=== PATIENT | male | born 1960 | race Caucasian/White ===

== ENCOUNTER → 2023-02-15 | Outpatient (CLI) | payer MEDICARE ==
--- NOTE | 2023-02-15 11:02 | Diagnostic Imaging Report ---
PROCEDURE: MRI lumbar spine. TECHNIQUE: Multiplanar, multisequence MRI of the lumbar spine was performed without contrast. INDICATION: Lumbar radiculopathy. COMPARISON: None. FINDINGS: There are 5 lumbar-type vertebral bodies for the purposes of this report. Normal alignment. Vertebral body heights preserved. Normal bone marrow signal. No abnormal signal in the conus which terminates at L1. Normal morphology of the cauda equina. The pelvis and visualized paravertebral soft tissues demonstrate no acute findings. Partially visualized atrophic right kidney. L1-L2: Mild facet arthropathy. Mild bilateral neural foraminal narrowing. No spinal canal or lateral recess narrowing. L2-L3: Mild facet arthropathy. No spinal canal or lateral recess narrowing. Mild right neural foraminal narrowing. L3-L4: Broad-based disc bulging and ligamentous hypertrophy result in mild spinal canal narrowing. Mild right and moderate left neural foraminal narrowing. No lateral recess narrowing. L4-L5: Broad-based disc bulging ligamentous hypertrophy results in moderate spinal canal stenosis. Moderate left and mild right lateral recess narrowing. Moderate left and severe right neural foraminal narrowing. L5-S1: No spinal canal or lateral recess narrowing. No neural foraminal narrowing. IMPRESSION: 1. Spondylotic changes result in moderate spinal canal stenosis at L4-L5. 2. Scattered high-grade lateral recess and neural foraminal narrowing detailed above. 3. No acute osseous findings. Dictated by: Dictated on workstation # [id number]
== END ==
LOC: RAD 09:30
PROVIDERS: ATTEND Nurse Practitioner
DX: M47.26 Other spondylosis with radiculopathy, lumbar region (principal); M48.061 Spinal stenosis, lumbar region without neurogenic claudication; M51.16 Intervertebral disc disorders with radiculopathy, lumbar region; M89.38 Hypertrophy of bone, other site
CPT/HCPCS: 72148